=== PATIENT | female | born 2000 | race Caucasian/White ===

== ENCOUNTER 2023-05-21 07:20 | Day surgery (SDC) | payer OTHER ==
[~2023-05-21] VITALS: Ht 160 cm; Wt 108.9 kg
[2023-05-21] MEDS ORDERED: fentaNYL citrate 0.05 MG/ML VIAL ONE (08:29)
[2023-05-21] MEDS ORDERED: MIDAZOLAM 2 MG/2 ML VIAL ONE ×3 (08:30→08:32)
[2023-05-21] MEDS ORDERED: LIDOCAINE 2% 100 MG/5 ML UJET TP ONE (08:32)
[2023-05-21] MEDS ORDERED: MIDAZOLAM 2 MG/2 ML VIAL IVP ONE (13:05)
[2023-05-21] MEDS ORDERED: fentaNYL citrate 0.05 MG/ML VIAL IVP SCH (13:15)
[2023-05-21] MEDS ORDERED: LIDOCAINE 2% 100 MG/5 ML UJET TP SCH (13:15)
== END 2023-05-21 10:20 | disposition home or self-care (01) ==
LOC: MDS 07:20 → MMU 07:21 → MDS 10:20
PROVIDERS: ATTEND Internal Medicine Gastroenterology
DX: K62.5 Hemorrhage of anus and rectum (principal); R11.0 Nausea; K20.90 Esophagitis, unspecified without bleeding; E66.9 Obesity, unspecified; Z68.41 Body mass index [BMI] 40.0-44.9, adult; Z79.899 Other long term (current) drug therapy; Z98.890 Other specified postprocedural states
CPT/HCPCS: 36415; 43239; 45378; 86677; J2250; J3010